=== PATIENT | male | born 1955 | race Caucasian/White ===

== ENCOUNTER 2017-07-09 07:20 | Day surgery (SDC) | payer BC ==
[~2017-07-09 07:20] MED LIST: ACETAMINOPHEN 1,000 MG/100 ML BTL IV ONE
[2017-07-09] MEDS ORDERED: BUPIVACAINE 0.25% W/EPI MPF 30ML VIAL IVP ONE (14:46)
[2017-07-09] MEDS ORDERED: OXYCODONE HCL/APAP 5MG/325MG TABLET PO ONE (14:52)
[2017-07-09] MEDS ORDERED: PROPOFOL 10 MG/ML VIAL IV ONE (14:58)
[2017-07-09] MEDS ORDERED: HYDROMORPHONE HCL 2 MG/ML VIAL IV ONE (14:58)
[2017-07-09] MEDS ORDERED: LIDOCAINE 2% MDV (20MG/ML) 20ML VIAL IV ONE (14:58)
[2017-07-09] MEDS ORDERED: KETOROLAC 30 MG/ML VIAL IVP ONE (14:58)
[2017-07-09] MEDS ORDERED: SEVOFLURANE 250 ML INH ONE (14:58)
[2017-07-09] MEDS ORDERED: MIDAZOLAM HCL 2MG/2ML VIAL IV ONE (14:58)
--- NOTE | 2017-07-12 12:40 | Operative Note ---
DATE OF SURGERY: 07/09/2017 Surgeon: Jay Moran DO PREOPERATIVE DIAGNOSES: 1. Torn medial meniscus of the left knee. 2. Chondromalacia of the left knee. POSTOPERATIVE DIAGNOSES: 1. Torn medial and lateral meniscus, left knee. 2. Medial mid patellar plica, left knee. 3. Chondromalacia medial femoral condyle and patella, left knee. OPERATION: 1. Arthroscopic partial medial and lateral meniscectomy, left knee. 2. Arthroscopic resection, medial mid patellar plica, left knee. 3. Arthroscopic chondroplasty medial femoral condyle, left knee. DESCRIPTION: A 61-year-old male was taken to the operating room and placed in the supine position on the operating room table where general anesthesia was administered. The left lower extremity was elevated, exsanguinated and the tourniquet inflated to 300 mmHg. Arthroscopic knee gamboa applied. Left knee prepped with Hibiclens and draped in the usual sterile fashion. An inferolateral portal was established with the 4 mm arthroscope and initial evaluation of the joint demonstrated grade 2 chondromalacia of the patella with no obvious evidence of instability of that articulate cartilage. The trochlea however, appeared normal. The patient did have a markedly thickened and fibrotic medial mid patellar plica. Through an inferior medial portal, we probed the articular cartilage at the patellofemoral joint and confirm the grade 2 chondromalacia of the patella but did not feel that there was any instability and it was not further disturbed. The medial mid patellar plica was resected with a rotating shaver. The medial compartment was entered and a complex tear of the posterior horn and the medial meniscus was present with both flap and horizontal cleavage components with the apex of the tear being at approximately the 12 o'clock. Utilizing the basket forceps and rotating shaver, we resected back to the apex and tapered in each direction to restore a smooth, contoured surface. A chondroplasty of the medial femoral condyle was also performed because of grossly unstable flaps of articular cartilage with grade 2 chondromalacia being present on the medial femoral condyle as well. The intracondylar notch was examined and found to be normal. The lateral compartment was entered and a tear of the posterior horn of the medial meniscus was present. This tear extended to the level of the root of the lateral meniscus but that root was not avulsed and some horizontal cleavage components of this tear were present. Utilizing the basket forceps, we trimmed the posterior horn to a smooth, contoured surface. The rotating shaver was used to further smooth the cut surface. The remainder of the meniscus was probed and found to be normal as was the articular cartilage of the lateral compartment. The joint was then copiously irrigated and suctioned. All areas were examined and no additional findings were present. The joint was suctioned and all instruments were removed. The portals infiltrated with 0.25% Marcaine with epinephrine. A sterile dressing was applied, tourniquet and knee gamboa released and the patient taken to the recovery room in satisfactory condition. We did however, put 2 stitches in each arthroscopic portal to prevent any bleeding from the portals. GROSS PATHOLOGY: This patient demonstrated tears of both the medial and lateral menisci as described above. The patient also demonstrated a thickened, fibrotic medial mid patellar plica and grade 2 chondromalacia of the patella and medial femoral condyle as described. The entire weightbearing surface of the medial femoral condyle was involved with these grade 2 changes. SISSY
== END 2017-07-09 10:30 | disposition home or self-care (01) ==
LOC: SUR 07:20
PROVIDERS: ATTEND Orthopaedic Surgery
DX: S83.242A Other tear of medial meniscus, current injury, left knee, initial encounter (principal); S83.282A Other tear of lateral meniscus, current injury, left knee, initial encounter; M94.262 Chondromalacia, left knee; I10 Essential (primary) hypertension; F17.210 Nicotine dependence, cigarettes, uncomplicated
CPT/HCPCS: 29880; 01400; J1885; J1170